=== PATIENT | female | born 1990 | race Caucasian/White ===

== ENCOUNTER 2018-03-05 12:18 | Emergency (ER) | payer MEDICAID ==
[~2018-03-05] VITALS: Ht 152.4 cm; Wt 53.5 kg
[2018-03-05 13:08] VITALS: BP 127/89
[2018-03-05] MEDS ORDERED: cefTRIAXone SOD 1,000 MG VL IM ONE (13:30)
[2018-03-05] MEDS ORDERED: cefTRIAXone SOD 1,000 MG VL ONE (13:31)
== END 2018-03-05 14:00 | disposition home or self-care (01) ==
LOC: ER 12:21
DX: J03.90 Acute tonsillitis, unspecified (principal); I88.9 Nonspecific lymphadenitis, unspecified
CPT/HCPCS: 96372; 99283; J0696

== ENCOUNTER 2018-07-27 11:17 | Emergency (ER) | payer MEDICAID ==
[~2018-07-27] VITALS: Ht 152.4 cm; Wt 52.2 kg
[2018-07-27 11:51] VITALS: BP 151/95
== END 2018-07-27 12:05 | disposition home or self-care (01) ==
LOC: ER 11:17
DX: H10.9 Unspecified conjunctivitis (principal); J02.9 Acute pharyngitis, unspecified

== ENCOUNTER 2020-07-22 13:01 | Emergency (ER) | payer OTHER, MEDICAID ==
[~2020-07-22] VITALS: Ht 152.4 cm; Wt 63.5 kg
[2020-07-22 13:21] VITALS: BP 147/89
== END 2020-07-22 16:52 | disposition home or self-care (01) ==
LOC: ER 13:01
DX: Z34.82 Encounter for supervision of other normal pregnancy, second trimester (principal); Z3A.17 17 weeks gestation of pregnancy
CPT/HCPCS: 76805